=== PATIENT | female | born 1990 | race Caucasian/White ===

== ENCOUNTER 2017-10-30 18:16 | Emergency (ER) | payer OTHER ==
--- NOTE | 2017-10-30 19:16 | ER Document Report ---
ED Medical Screen (RME) - General Chief Complaint: Pelvic Pain Stated Complaint: ABDOMINAL CRAMPING Time Seen by Provider: 10/30/17 19:15 Notes: Patient states she is 14 weeks with a high risk . She states she has had multiple ultrasounds during this that it showed some questionable developmental abnormalities. She states she is followed by maternal- medicine. She states today she began to have some abdominal cramping and tightness but no bleeding. She was concerned so she came to emergency department for evaluation. TRAVEL OUTSIDE OF THE [place] IN LAST 30 DAYS: No - Related Data Allergies/Adverse Reactions: valacyclovir [From Valtrex] Allergy (Verified 10/30/17 18:21) Past Medical History - Social History Chew tobacco use (# tins/day): No Frequency of alcohol use: None Drug Abuse: None Renal/ Medical History: Denies: Hx Peritoneal Dialysis Psychiatric Medical History: Reports: Hx Bipolar Disorder Past Surgical History: Reports: Hx Abdominal Surgery - inguinal hernias x2 Physical Exam - Vital signs Vitals: Temp Pulse Resp BP Pulse Ox 97.9 F 106 H 16 136/81 H 100 10/30/17 18:22 10/30/17 18:22 10/30/17 18:22 10/30/17 18:22 10/30/17 18:22 Course - Vital Signs Vital signs: Temp Pulse Resp BP Pulse Ox 97.9 F 106 H 16 136/81 H 100 10/30/17 18:22 10/30/17 18:22 10/30/17 18:22 10/30/17 18:22 10/30/17 18:22
[2017-10-30 19:40] LABS: ABSOLUTE EOSINOPHILS # (AUTO) 0.1 10^3/uL (0.0-0.6); ABSOLUTE LYMPHOCYTES (AUTO) 1.7 10^3/uL (0.5-4.7); ABSOLUTE MONOCYTES (AUTO) 0.6 10^3/uL (0.1-1.4); ABSOLUTE NEUT (AUTO) 6.1 10^3/uL (1.7-8.2); BASOPHILS % (AUTO) 0.6 % (0-2); HEMATOCRIT 39.6 % (36.0-47.0); HEMOGLOBIN 13.9 g/dL (12.0-15.5); LYMPHOCYTES % (AUTO) 20.1 % (13-45); MEAN CORPUSCULAR HEMOGLOBIN 30.3 pg (27.0-33.4); MEAN CORPUSCULAR VOLUME 87 fl (80-97); MONOCYTES % (AUTO) 7.2 % (3-13); PLATELET COUNT 246 10^3/uL (150-450); RED BLOOD COUNT 4.57 10^6/uL (3.72-5.28); RED CELL DISTRIBUTION WIDTH 13.3 % (11.5-14.0); SEGMENTED NEUTROPHILS % (AUTO) 71.1 % (42-78); TOTAL CELLS COUNTED % (AUTO) 100 %; WHITE BLOOD COUNT 8.6 10^3/uL (4.0-10.5)
[2017-10-30 19:52] LABS: APPEARANCE,URINE CLEAR; BILIRUBIN,URINE NEGATIVE (NEGATIVE); COLOR,URINE STRAW; GLUCOSE, URINE NEGATIVE (NEGATIVE); KETONES,URINE TRACE mg/dL (NEGATIVE); LEUKOCYTE ESTERASE,URINE NEGATIVE (NEGATIVE); NITRITE,URINE NEGATIVE (NEGATIVE); PROTEIN,URINE NEGATIVE (NEGATIVE); URINE SPECIFIC GRAVITY 1.006; UROBILINOGEN,URINE NEGATIVE mg/dL (<2.0)
--- NOTE | 2017-10-30 19:55 | ER Document Report ---
ED GI/ - General Chief Complaint: Pelvic Pain Stated Complaint: ABDOMINAL CRAMPING Time Seen by Provider: 10/30/17 19:15 Notes: Patient is a 26 year old female, A1 at almost 15 weeks gestation by first trimester ultrasound, the comes emergency department for chief complaint of pains and cramping sensation in her mid to lower abdomen. Symptoms started several hours ago. She denies injury, dysuria, vaginal bleeding, vaginal discharge, fever or chills, nausea or vomiting. She had a bowel movement earlier today, she denies that it was abnormal. She states she is visiting down here for several days, her [employer] is in [place], she goes back tomorrow, she states she just needs to be checked out. TRAVEL OUTSIDE OF THE [place] IN LAST 30 DAYS: No - Related Data Allergies/Adverse Reactions: valacyclovir [From Valtrex] Allergy (Verified 10/30/17 18:21) Past Medical History - General Information source: Patient - Social History Smoking Status: Never Smoker Chew tobacco use (# tins/day): No Frequency of alcohol use: None Drug Abuse: None Lives with: Family Family History: Reviewed & Not Pertinent Patient has suicidal ideation: No Patient has homicidal ideation: No Renal/ Medical History: Denies: Hx Peritoneal Dialysis Psychiatric Medical History: Reports: Hx Bipolar Disorder Past Surgical History: Reports: Hx Abdominal Surgery - inguinal hernias x2 Review of Systems - Review of Systems Constitutional: No symptoms reported EENT: No symptoms reported Cardiovascular: No symptoms reported Respiratory: No symptoms reported Gastrointestinal: See HPI Genitourinary: See HPI Female Genitourinary: See HPI Musculoskeletal: No symptoms reported Skin: No symptoms reported Hematologic/Lymphatic: No symptoms reported Neurological/Psychological: No symptoms reported Physical Exam - Vital signs Vitals: Temp Pulse Resp BP Pulse Ox 97.9 F 106 H 16 136/81 H 100 10/30/17 18:22 10/30/17 18:22 10/30/17 18:22 10/30/17 18:22 10/30/17 18:22 Interpretation: Normal - General General appearance: Appears well, Alert In distress: None - HEENT Head: Normocephalic, Atraumatic Eyes: Normal Conjunctiva: Normal Extraocular movements intact: Yes Eyelashes: Normal Pupils: PERRL Nasal: Normal Mouth/Lips: Normal Mucous membranes: Normal Pharynx: Normal Neck: Normal - Respiratory Respiratory status: No respiratory distress Chest status: Nontender Breath sounds: Normal Chest palpation: Normal - Cardiovascular Rhythm: Regular Heart sounds: Normal auscultation Murmur: No - Abdominal Inspection: Normal Distension: No distension. No: Distended Bowel sounds: Normal Tenderness: Nontender. No: Tender, Guarding Organomegaly: No organomegaly - Back Back: Normal, Nontender - Extremities General upper extremity: Normal inspection, Nontender, Normal color, Normal ROM , Normal temperature General lower extremity: Normal inspection, Nontender, Normal color, Normal ROM , Normal temperature, Normal weight bearing. No: Handy's sign - Neurological Neuro grossly intact: Yes Cognition: Normal Orientation: AAOx4 Brook Coma Scale Eye Opening: Spontaneous Brook Coma Scale Verbal: Oriented Brook Coma Scale Motor: Obeys Commands Brook Coma Scale Total: 15 Speech: Normal Motor strength normal: LUE, RUE, LLE, RLE Sensory: Normal - Psychological Associated symptoms: Anxious - Anxious but easily reassured - Skin Skin Temperature: Warm Skin Moisture: Dry Skin Color: Normal Course - Re-evaluation Re-evalutation: Patient initially anxious, after conversation she states she feels reassured. I did perform workup including CBC, chemistry, urinalysis and these are all unremarkable. Ultrasound shows living IUP with no observed abnormality. Vital signs are unremarkable. Patient with no symptoms on my evaluation or reevaluation, discussed workup in detail, provide copy results, patient states she will follow-up with [employer] in the next couple of days. Discussed return precautions. Patient states understanding and agreement. - Vital Signs Vital signs: Temp Pulse Resp BP Pulse Ox 98 F 80 16 122/80 100 10/30/17 22:15 10/30/17 22:15 10/30/17 22:15 10/30/17 22:15 10/30/17 22:15 - Laboratory Result Diagrams: 10/30/17 19:29 10/30/17 19:29 Laboratory results interpreted by me: 10/30/17 10/30/17 19:29 19:29 Creatinine 0.49 L Urine Ketones TRACE H Discharge - Discharge Clinical Impression: Lower abdominal pain Condition: Stable Disposition: HOME, SELF-CARE Additional Instructions: Your laboratory workup, urinalysis, and ultrasound did not show any concerning abnormalities. Your symptoms are most likely either from the ligament of the uterus or from your bowels. You can take stool softener such as Colace [id number], you can also take Pepcid if needed for heartburn. Continue to stay hydrated. Follow-up closely with your [employer] for additional evaluation and management. Return if you worsen including severe pain, heavy bleeding, passing out, fever, or any other concerning symptoms.
[2017-10-30 20:00] LABS: ALANINE AMINOTRANSFERASE 37 U/L (9-52); ALBUMIN 4.2 g/dL (3.5-5.0); ALKALINE PHOSPHATASE 66 U/L (38-126); ANION GAP 12 (5-19); ASPARTATE AMINO TRANSFERASE 19 U/L (14-36); BILIRUBIN,DIRECT 0.3 mg/dL (0.0-0.4); BILIRUBIN,TOTAL 0.3 mg/dL (0.2-1.3); BLOOD UREA NITROGEN 10 mg/dL (7-20); CALCIUM 9.8 mg/dL (8.4-10.2); CARBON DIOXIDE 24 mmol/L (22-30); CHLORIDE 103 mmol/L (98-107); GLUCOSE 93 mg/dL (75-110); POTASSIUM 4.1 mmol/L (3.6-5.0); SODIUM 139.3 mmol/L (137-145); TOTAL PROTEIN 7.4 g/dL (6.3-8.2)
--- NOTE | 2017-10-30 21:33 | RADIOLOGY REPORT (SQ) ---
EXAM DESCRIPTION: U/S OB LIMITED COMPLETED DATE/TIME: 10/30/2017 9:18 pm REASON FOR STUDY: abd pain COMPARISON: None. TECHNIQUE: Limited transabdominal grayscale ultrasound for evaluation of specific requested obstetri dewayne parameters. LIMITATIONS: None. FINDINGS: CERVICAL LENGTH: 3.5 Closed. CHERYL: Adequate. FHR: Were 62 beats per minute. PRESENTATION: Transverse. OTHER: Anterior placenta IMPRESSION: LIMITED OBSTETRICAL ULTRASOUND WITH MEASURED PARAMETERS DELINEATED ABOVE. Trimester of : Second trimester - 13 weeks 1 day to 27 weeks 6 days. TECHNICAL DOCUMENTATION: JOB ID: [id number] [employer]- All Rights Reserved Reading location - IP/workstation name: [email or web address]
[2017-10-30 22:31] VITALS: BP 122/80
== END 2017-10-30 22:20 | disposition home or self-care (01) ==
LOC: ER 18:16
DX: O26.92 Pregnancy related conditions, unspecified, second trimester (principal); R10.30 Lower abdominal pain, unspecified; R10.2 Pelvic and perineal pain; Z3A.15 15 weeks gestation of pregnancy
CPT/HCPCS: 36415; 76815; 80053; 81001; 85025; 99284